=== PATIENT | female | born 1990 | race Caucasian/White ===

== ENCOUNTER → 2017-03-14 | Outpatient (CLI) | payer OTHER ==
[~2017-03-14] MED LIST: BCPILLS PO; LEVO100T PO
[2017-03-14 19:04] LABS: THYROID STIMULATING HORMONE 2.45 uIu/ml (0.300-4.500)
== END | disposition home or self-care (01) ==
LOC: C.LAB1850 17:06
PROVIDERS: ATTEND Physician Assistant
DX: E03.9 Hypothyroidism, unspecified (principal)

== ENCOUNTER → 2017-03-22 | Outpatient (CLI) | payer OTHER ==
[2017-03-22 10:19] LABS: ESTIMATED AVERAGE GLUCOSE 105 mg/dl; HA1C FLAG Normal (Normal)
[2017-03-22 10:27] LABS: CHOLESTEROL/HDL RATIO 3.7
[2017-03-22 10:30] LABS: CALCULATED INSULIN SENSITIVITY 0.359; GLUCOSE LOG 1.8976; INSULIN FASTING 7.7 mU/L (3-25); INSULIN LOG 0.8865
== END ==
LOC: C.LAB1850 08:48
PROVIDERS: ATTEND Physician Assistant
DX: E28.2 Polycystic ovarian syndrome (principal)